=== PATIENT | female | born 1980 | race Caucasian/White ===

== ENCOUNTER → 2019-11-01 | Outpatient (CLI) | payer MEDICAID ==
--- NOTE | 2019-11-01 15:05 | RADIOLOGY REPORT (SQ) ---
EXAM DESCRIPTION: KNEE LEFT 3 VIEWS IMAGES COMPLETED DATE/TIME: 11/01/2019 2:27 pm REASON FOR STUDY: SWELLING OF KNEE JOINT, LEFT COMPARISON: None. NUMBER OF VIEWS: Three views left knee LIMITATIONS: None. FINDINGS: No fracture or bone lesion. Small joint effusion. OTHER: No other significant finding. IMPRESSION: Joint effusion. TECHNICAL DOCUMENTATION: JOB ID: [id number] Reading location - IP/workstation name: [email or web address]
== END ==
LOC: OD 14:15
PROVIDERS: ATTEND Nurse Practitioner Acute Care
DX: M25.462 Effusion, left knee (principal)